=== PATIENT | female | born 1995 | race Caucasian/White ===

== ENCOUNTER 2020-08-21 23:42 | Inpatient (IN) | payer OTHER ==
[~2020-08-21] VITALS: Ht 167.6 cm; Wt 92.2 kg
[2020-08-22 00:31] LABS: BASOPHILS % (AUTO) 1 % (0-1); EOSINOPHILS % (AUTO) 1 % (1-7); LYMPHOCYTES % (AUTO) 22 % (22-44); MEAN CORPUSCULAR HEMOGLOBIN 33.2 pg (27.0-34.8); MEAN CORPUSCULAR HGB CONC 35.4 g/dL (32.4-35.8); MEAN PLATELET VOLUME 9.5 fL (7.4-10.4); MONOCYTES % (AUTO) 8 % (2-9); NEUTROPHILS % (AUTO) 68 % (42-75); PLATELET COUNT 152 x10^3/uL (130-400); RED BLOOD COUNT 4.62 x10^6/uL (3.82-5.3); RED CELL DISTRIBUTION WIDTH 12.4 % (9.6-15.2)
[2020-08-22 00:33] LABS: MICROSCOPIC INDICATED
[2020-08-22 00:41] LABS: ANION GAP 6 mmol/L (5-15); CALCIUM 9.2 mg/dL (8.5-10.1); CHLORIDE 110 mmol/L (98-107); CREATININE 0.78 mg/dL (0.55-1.02)
[2020-08-22 00:42] LABS: ALANINE AMINOTRANSFERASE 19 U/L (12-78); ALBUMIN 2.6 g/dL (3.4-5.0)
[2020-08-22 00:52] LABS: ALKALINE PHOSPHATASE 200 U/L (45-117); BILIRUBIN,TOTAL 0.3 mg/dL (0.2-1.0); TOTAL PROTEIN 6.4 g/dL (6.4-8.2)
[2020-08-22 00:55] LABS: BILIRUBIN, DIRECT < 0.1 mg/dL (0.1-0.2)
[2020-08-22] MEDS ORDERED: TERBUTALINE 1 MG/ML, 1ML SQ PRN (01:00)
[2020-08-22] MEDS ORDERED: OXYTOCIN 30U/ 0.9% NaCL 500ML 500 ML IV ONE (01:00)
[2020-08-22] MEDS ORDERED: ONDANSETRON 2MG/ML, 2ML IVPush PRN (01:00)
[2020-08-22] MEDS ORDERED: FENTANYL PF 100 MCG/2ML IV PRN (01:00)
[2020-08-22] MEDS ORDERED: TERBUTALINE 1 MG/ML, 1ML IVPush PRN (01:00)
[2020-08-22] MEDS ORDERED: FENTANYL PF 100 MCG/2ML IVPush PRN (01:00)
[2020-08-22] MEDS ORDERED: PENICILLIN GK 5,000,000 UNITS in DEXTROSE 5% 100 ML IVPB ONE (01:00)
[2020-08-22] MEDS: LACTATED RINGERS 1,000 ML IV SCH ×3 (01:08→17:00)
[2020-08-22] MEDS ORDERED: LIDOCAINE 1%, 20ML ONE (01:16)
[2020-08-22] MEDS ORDERED: MISOPROSTOL 200 MCG TABLET ONE (01:16)
[2020-08-22] MEDS ORDERED: NEWBORN KIT ONE (01:16)
[2020-08-22] MEDS: PENICILLIN GK 2,500,000 UNITS in DEXTROSE 5% 100 ML IVPB SCH ×5 (05:17→21:00)
[2020-08-22] MEDS ORDERED: OXYTOCIN 30U/ 0.9% NaCL 500ML 500 ML ONE (07:04)
[2020-08-22] MEDS ORDERED: METOCLOPRAMIDE 5 MG/ML, 2ML IV PRN (07:30)
[2020-08-22] MEDS ORDERED: ONDANSETRON 2MG/ML, 2ML IV PRN (07:30)
[2020-08-22] MEDS ORDERED: MISOPROSTOL 200 MCG TABLET PR PRN (07:30)
[2020-08-22] MEDS ORDERED: SIMETHICONE 80 MG CHEW TAB PO PRN (07:30)
[2020-08-22] MEDS: OXYTOCIN 30U/ 0.9% NaCL 500ML 500 ML IV SCH ×2 (07:30→17:30)
[2020-08-22] MEDS ORDERED: BISACODYL 10 MG SUPP PR PRN (07:30)
[2020-08-22] MEDS ORDERED: METHYLERGONOVINE 0.2 MG/ML IM PRN (07:30)
[2020-08-22 08:00] VITALS: BP 136/77
[2020-08-22] MEDS: DOCUSATE 100 MG CAPSULE PO PRN ×2 (08:33→22:42)
[2020-08-22] MEDS: PRENATAL VIT/IRON/FA 1 EACH TABLET PO SCH (08:33)
[2020-08-22 12:00] VITALS: BP 116/69
[2020-08-22] MEDS: IBUPROFEN 600 MG TABLET PO PRN ×2 (14:56→22:42)
[2020-08-22 16:30] VITALS: BP 116/73
[2020-08-22 20:00] VITALS: BP 127/82
[2020-08-22 20:35] LABS: BASOPHILS % (AUTO) 0 % (0-1); EOSINOPHILS % (AUTO) 0 % (1-7); LYMPHOCYTES % (AUTO) 18 % (22-44); MEAN CORPUSCULAR HEMOGLOBIN 32.7 pg (27.0-34.8); MEAN CORPUSCULAR HGB CONC 34.4 g/dL (32.4-35.8); MEAN PLATELET VOLUME 9.7 fL (7.4-10.4); MONOCYTES % (AUTO) 8 % (2-9); NEUTROPHILS % (AUTO) 73 % (42-75); PLATELET COUNT 151 x10^3/uL (130-400); RED BLOOD COUNT 4.04 x10^6/uL (3.82-5.3); RED CELL DISTRIBUTION WIDTH 12.5 % (9.6-15.2)
[2020-08-23 00:30] VITALS: BP 132/79
[2020-08-23] MEDS: LACTATED RINGERS 1,000 ML IV SCH (01:00)
[2020-08-23] MEDS: PENICILLIN GK 2,500,000 UNITS in DEXTROSE 5% 100 ML IVPB SCH ×2 (01:00→05:00)
[2020-08-23] MEDS: OXYTOCIN 30U/ 0.9% NaCL 500ML 500 ML IV SCH (03:30)
[2020-08-23 04:30] VITALS: BP 119/75
[2020-08-23 07:30] VITALS: BP 123/82
[2020-08-23] MEDS: IBUPROFEN 600 MG TABLET PO PRN ×2 (09:14→19:17)
[2020-08-23] MEDS: DOCUSATE 100 MG CAPSULE PO PRN ×2 (09:14→19:17)
[2020-08-23] MEDS: PRENATAL VIT/IRON/FA 1 EACH TABLET PO SCH (09:14)
[2020-08-23 19:30] VITALS: BP 124/81
[2020-08-24] MEDS: IBUPROFEN 600 MG TABLET PO PRN ×2 (05:57→13:07)
[2020-08-24 07:49] VITALS: BP 118/73
[2020-08-24] MEDS: PRENATAL VIT/IRON/FA 1 EACH TABLET PO SCH (08:20)
[2020-08-24] MEDS: DOCUSATE 100 MG CAPSULE PO PRN (08:20)
== END 2020-08-24 13:15 | disposition home or self-care (01) | DRG 807 ==
LOC: LDOP 23:42 → EDSTATUS 23:56 → LDIP 08-22 00:49 → 2NW 08-22 07:47
PROVIDERS: ADMIT Obstetrics & Gynecology; ATTEND Obstetrics & Gynecology
PROC: 10E0XZZ Delivery of Products of Conception, External Approach (ICD-10-PCS; principal; 2020-08-22)
PROC: 0KQM0ZZ Repair Perineum Muscle, Open Approach (ICD-10-PCS; 2020-08-22)
DX: O99.824 Streptococcus B carrier state complicating childbirth (principal); Z37.0 Single live birth; Z3A.39 39 weeks gestation of pregnancy; O70.1 Second degree perineal laceration during delivery; Z20.822 Contact with and (suspected) exposure to COVID-19
CPT/HCPCS: 36415; 80053; 81001; 82248; 82570; 84156; 84550; 85025; 86592; 86850; 86900; 87086; 87635; G0378; J2540; J7120

== ENCOUNTER 2020-08-21 23:45 | Outpatient (CLI) | payer OTHER | END 2020-08-22 00:35 | disposition home or self-care (01) | LOC: LDOP 23:45 | PROVIDERS: ATTEND Obstetrics & Gynecology | DX: O26.893 Other specified pregnancy related conditions, third trimester (principal); R10.9 Unspecified abdominal pain; Z3A.39 39 weeks gestation of pregnancy | CPT/HCPCS: 36415; 86900 ==